=== PATIENT | female | born 2000 | race Caucasian/White ===

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

== ENCOUNTER 2021-04-07 18:09 | Emergency (ER) | payer OTHER ==
[~2021-04-07 18:09] MED LIST: CIPR-249 PO; IRON65TA2 PO; PRED20TA PO
[2021-04-07 18:11] VITALS: BP 121/64
== END 2021-04-08 00:18 | disposition left against medical advice (07) ==
LOC: M ED 18:09
DX: Z53.21 Procedure and treatment not carried out due to patient leaving prior to being seen by health care provider (principal)